=== PATIENT | female | born 1960 | race Caucasian/White ===

== ENCOUNTER 2017-04-18 23:44 | Emergency (ER) | payer OTHER ==
[~2017-04-18 23:44] MED LIST: ALLOPURINOL100 MG PO; AMLODIPINE BES2.5 MG PO; ASPIRIN ADULT L81 MG PO; LANTUS SOL100 UNITS/; LASIX20 MG PO; LEVOTHYROXINE25 MCG PO; LOPRESSOR25 MG PO; PREDNISONE20 MG PO; PROTONIX40 MG PO; SIMVASTATIN10 MG; VALTREX1 GM PO; ZOFRAN ODT4 MG PO
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
--- NOTE | 2017-04-19 01:29 | ED ORDER SUMMARY ---
..... Patient: DOUGIE LEE OrderSheet [facility] VisitID: [id number] [place] [address] 56y, F Registration Date/Time: 04/18/2017 ORDER SHEET Weight: 62.1 kg (stated) Allergies: Metformin, Sulfa Antibiotics GENERAL ORDERS: CT Head wo Cont Urgent (00:01 04/19/2017 Js SERRA) (Ack 0:04 AMcQuoid ER Tech1) (0:38 GUnger) CT Cervical Spine wo Cont Urgent (00:02 04/19/2017 Js SERRA) (Ack 0:04 AMcQuoid ER Tech1) (0:38 GUnger) MEDICATION ORDERS: Tdap IM 0.5 mL (NOW) (01:24 04/19/2017 Js SERRA) (1:37 LWhalblayne R.N.) IV FLUIDS: ORDER SHEET NOTES: [Electronically signed by Colin Henriquez R.N. (01:39 04/19/2017)] [Electronically signed by David Estrada MD (02:15 04/19/2017)] [Electronically locked/signed by Colin Henriquez R.N. (:39 04/19/2017)]
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
--- NOTE | 2017-04-19 01:29 | ED ORDER SUMMARY ---
..... Patient: DOUGIE LEE OrderSheet [facility] VisitID: [id number] [place] [address] 56y, F Registration Date/Time: 04/18/2017 ORDER SHEET Weight: 62.1 kg (stated) Allergies: Metformin, Sulfa Antibiotics GENERAL ORDERS: CT Head wo Cont Urgent (00:01 04/19/2017 Js SERRA) (Ack 0:04 AMcQuoid ER Tech1) (0:38 GUnger) CT Cervical Spine wo Cont Urgent (00:02 04/19/2017 Js SERRA) (Ack 0:04 AMcQuoid ER Tech1) (0:38 GUnger) MEDICATION ORDERS: Tdap IM 0.5 mL (NOW) (01:24 04/19/2017 Js SERRA) (1:37 LWhalblayne R.N.) IV FLUIDS: ORDER SHEET NOTES: [Electronically signed by Colin Henriquez R.N. (01:39 04/19/2017)] [Electronically signed by David Estrada MD (02:15 04/19/2017)] [Electronically locked/signed by Colin Henriquez R.N. (:39 04/19/2017)]
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
--- NOTE | 2017-04-19 02:15 | ED DISCHARGE INSTRUCTIONS ---
Patient: DOUGIE LEE General Instructions [facility] VisitID: [id number] [address], [place] [address] 56y, F Registration Date/Time: 04/18/2017 Concussion. No loss of consciousness. Skull fracture with no loss of consciousness. Concussion. (R occipital - non displaced). Single hematoma to the scalp. INSTRUCTIONS Apply ice for 20 minutes four times a day until better. Don't apply ice directly to skin and don't use while asleep. No driving or operating machinery while taking medication. Warnings: INFECTION: Watch for signs of infection (increasing heat and redness, pus-like drainage, swelling, or increased pain). Return or see your doctor if these signs occur. TETANUS: You were given a tetanus shot during your visit. Make a note for future reference. Further evaluation is necessary in order to conduct further tests and assess the possibility of serious illness. It is very important to follow up with a physician. GENERAL WARNINGS: Return or contact your physician immediately if your condition worsens or changes unexpectedly, if not improving as expected, or if other problems arise. Your Current Medications: CONTINUE TAKING THE FOLLOWING MEDICATIONS: Allopurinol Oral. AmLODIPine Besylate Oral. Aspirin Oral : Tablet 81 mg, 1 tablet. Lasix Oral. Levothyroxine Sodium Oral. Metoprolol Tartrate Oral : 75 mg daily. Simvastatin Oral : 10 mg daily. Vitamin D Oral. Prescription Medications: Hydrocodone/APAP 5mg/325mg: take 1 to 2 orally every 6 hours as needed for pain. Dispense fifteen (15). No refills. Understanding of the discharge instructions verbalized by patient. Follow-up with: Toño Bryson MD, ENT, , [address], , [place], [id number] Follow up tomorrow. Call for the next available appointment. Follow-up with: [facility], , , [address], [place], [address] Follow up in four days. Call for the next available appointment. ADDITIONAL INFORMATION Head Injury, No Wake-Up (Adult) You have had a head injury. It does not appear serious at this time. Symptoms of a more serious problem (concussion, bruising, or bleeding in the brain) may appear later. Therefore, watch for the WARNING SIGNS listed below. Home Care: Your healthcare provider will tell you whether its okay to drive. If so, you can drive yourself home. For the next day or so, be careful when driving or using heavy machinery until you are sure you have no delayed symptoms. During the next 24 hours someone must stay with you to check for the signs below. It is not necessary to stay awake or be awakened during the night. If you have swelling of the face or scalp, apply an ice pack (ice cubes in a plastic bag, wrapped in a towel) for 20 minutes. Do this every 1-2 hours until the swelling starts to go down. Do not use aspirin or ibuprofen (Motrin, Advil) after a head injury.You may use acetaminophen (Tylenol)to control pain, unless another pain medicine was prescribed. [NOTE: If you have chronic liver or kidney disease or ever had a stomach ulcer or GI bleeding, talk with your doctor before using these medicines.] For the next 24 hours: Do not take alcohol, sedatives or medicines that make you sleepy. Avoid strenuous activities. No lifting or straining. If you have had any symptoms of a concussion today (nausea, vomiting, dizziness, confusion, headache, memory loss or if you were knocked out), do not return to sports or any activity that could result in another head injury until all symptoms are gone and you have been cleared by your doctor. A second head injury before fully recovering from the first one can lead to serious brain injury. Follow Up with your doctor if symptoms are not improving after 24 hours, or as directed. [NOTE: A radiologist will review any X-rays or CT scans that were taken. We will notify you of any new findings that may affect your care.] Get Prompt Medical Attention if any of the followingWARNING SIGNS occur: Repeated vomiting Severe or worsening headache or dizziness Unusual drowsiness, or unable to awaken as usual Confusion or change in behavior or speech, memory loss, blurred vision Convulsion (seizure) Increasing scalp or face swelling Redness, warmth or pus from the swollen area Fluid drainage or bleeding from the nose or ears Hematoma A hematoma is caused by an injury with damage to small blood vessels. This causes blood to leak into the tissues. Blood forms a pocket under the skin that swells and looks like a purplish patch. Gradually the blood in the hematoma is absorbed back into the body. The swelling and pain of the hematoma will go away. This takes from one to four weeks, depending on the size of the hematoma. The skin over the hematoma may turn bluish then brown and yellow as the blood is dissolved and absorbed. Home Care: Limit motion of the joints near the hematoma. If the hematoma is large and painful, you should avoid sports and other vigorous physical activity until the swelling and pain goes away. Apply an ice pack (ice cubes in a plastic bag, wrapped in a towel) over the injured area for 20 minutes every 1-2 hours the first day. You should continue with ice packs 3-4 times a day for the next two days. Continue the use of ice packs for relief of pain and swelling as needed. You may use acetaminophen (Tylenol) or ibuprofen (Motrin, Advil) to control pain, unless another pain medicine was prescribed. [ NOTE : If you have chronic liver or kidney disease or ever had a stomach ulcer or GI bleeding, talk with your doctor before using these medicines.] Follow Up with your doctor or as advised by our staff. [ NOTE: A radiologist will review any X-rays that were taken. We will notify you of any new findings that may affect your care.] Get Prompt Medical Attention if any of the following occur: Redness around the hematoma Increase in pain or warmth in the hematoma Increase in size of the hematoma Fever of 100.4F (38C) or higher, or as directed by your healthcare provider If the hematoma is on the arm or leg, watch for: Increased swelling or pain in the extremity Numbness or tingling or blue color of the hand or foot Diphtheria Toxoid Adsorbed, Pertussis Vaccine, Acellular (Adsorbed), Tetanus Toxoid, Adsorbed Suspension for injection What is this medicine? DIPHTHERIA and TETANUS TOXOIDS; PERTUSSIS VACCINE (dif THEER ee uh and TET n us TOK soids; per TUS iss vak SEEN) is used to prevent diphtheria, tetanus, and pertussis infections. How should I use this medicine? This vaccine is for injection into a muscle. It is given by a health direct care professional. A copy of Vaccine Information Statements will be given before each vaccination. Read this sheet carefully each time. The sheet may change frequently. Talk to your globe mounter regarding the use of this vaccine in children. While the DTP vaccine may be given to children ages 6 weeks to 7 years and the Tdap vaccine may be given to children at least 10 years old, precautions do apply. What side effects may I notice from receiving this medicine? Side effects that you should report to your doctor or health direct care professional as soon as possible: allergic reactions like skin rash, itching or hives, swelling of the face, lips, or tongue breathing problems fever of 103 degrees F or more flu-like symptoms inconsolable crying infection pain, tingling, numbness in the hands or feet seizures swelling of arm or leg that was injected unusually weak or tired Side effects that usually do not require immediate medical attention (report these side effects to your doctor or health direct care professional if they continue or are bothersome): fussy, irritable loss of appetite fever of 102 degrees F or less pain, tenderness, redness, swelling, or a 'knot' at site where injected vomiting What may interact with this medicine? immune globulin medicines that suppress your immune function like adalimumab, anakinra, infliximab medicines to treat cancer medicines that treat or prevent blood clots like warfarin, enoxaparin, and dalteparin steroid medicines like prednisone or cortisone What if I miss a dose? It is important not to miss your dose. Call your doctor or health direct care professional if you are unable to keep an appointment. Where should I keep my medicine? This drug is given in a hospital or clinic and will not be stored at home. What should I tell my health care provider before I take this medicine? They need to know if you have any of these conditions: blood disorders like hemophilia fever or infection immune system problems neurologic disease seizures an unusual or allergic reaction to vaccines, thimerosal, latex, other medicines, foods, dyes, or preservatives or trying to get breast-feeding What should I watch for while using this medicine? See your health care provider for all shots of this vaccine as directed. To have protection from infection, you must have 3 shots of this vaccine plus boosters as needed. Tell your doctor right away if you have any serious or unusual side effects after getting this vaccine. Hydrocodone Bitartrate, Acetaminophen Oral tablet What is this medicine? ACETAMINOPHEN; HYDROCODONE (a set a TERRY lon fen; peggy droe KOE done) is a pain reliever. It is used to treat mild to moderate pain. How should I use this medicine? Take this medicine by mouth. Swallow it with a full glass of water. Follow the directions on the prescription label. If the medicine upsets your stomach, take the medicine with food or milk. Do not take more than you are told to take. Talk to your globe mounter regarding the use of this medicine in children. This medicine is not approved for use in children. What side effects may I notice from receiving this medicine? Side effects that you should report to your doctor or health direct care professional as soon as possible: allergic reactions like skin rash, itching or hives, swelling of the face, lips, or tongue breathing problems confusion feeling faint or lightheaded, falls stomach pain yellowing of the eyes or skin Side effects that usually do not require medical attention (report to your doctor or health direct care professional if they continue or are bothersome): nausea, vomiting stomach upset What may interact with this medicine? alcohol antihistamines isoniazid medicines for depression, anxiety, or psychotic disturbances medicines for sleep muscle relaxants naltrexone narcotic medicines (opiates) for pain phenobarbital ritonavir tramadol What if I miss a dose? If you miss a dose, take it as soon as you can. If it is almost time for your next dose, take only that dose. Do not take double or extra doses. Where should I keep my medicine? Keep out of the reach of children. This medicine can be abused. Keep your medicine in a safe place to protect it from theft. Do not share this medicine with anyone. Selling or giving away this medicine is dangerous and against the law. Store at room temperature between 15 and 30 degrees C (59 and 86 degrees F). Protect from light. Keep container tightly closed. Throw away any unused medicine after the expiration date. Discard unused medicine and used packaging carefully. Pets and children can be harmed if they find used or lost packages. What should I tell my health care provider before I take this medicine? They need to know if you have any of these conditions: brain tumor Crohn's disease, inflammatory bowel disease, or ulcerative colitis drink more than 3 alcohol-containing drinks per day drug abuse or addiction head injury heart or circulation problems kidney disease or problems going to the bathroom liver disease lung disease, asthma, or breathing problems an unusual or allergic reaction to acetaminophen, hydrocodone, other opioid analgesics, other medicines, foods, dyes, or preservatives or trying to get breast-feeding What should I watch for while using this medicine? Tell your doctor or health direct care professional if your pain does not go away, if it gets worse, or if you have new or a different type of pain. You may develop tolerance to the medicine. Tolerance means that you will need a higher dose of the medicine for pain relief. Tolerance is normal and is expected if you take the medicine for a long time. Do not suddenly stop taking your medicine because you may develop a severe reaction. Your body becomes used to the medicine. This does NOT mean you are addicted. Addiction is a behavior related to getting and using a drug for a non-medical reason. If you have pain, you have a medical reason to take pain medicine. Your doctor will tell you how much medicine to take. If your doctor wants you to stop the medicine, the dose will be slowly lowered over time to avoid any side effects. You may get drowsy or dizzy when you first start taking the medicine or change doses. Do not drive, use machinery, or do anything that may be dangerous until you know how the medicine affects you. Stand or sit up slowly. There are different types of narcotic medicines (opiates) for pain. If you take more than one type at the same time, you may have more side effects. Give your health care provider a list of all medicines you use. Your doctor will tell you how much medicine to take. Do not take more medicine than directed. Call emergency for help if you have problems breathing. The medicine will cause constipation. Try to have a bowel movement at least every 2 to 3 days. If you do not have a bowel movement for 3 days, call your doctor or health direct care professional. Too much acetaminophen can be very dangerous. Do not take Tylenol (acetaminophen) or medicines that contain acetaminophen with this medicine. Many non-prescription medicines contain acetaminophen. Always read the labels carefully. You have been given the following additional information: HEAD INJURY, No Wake-Up (Adult) Hematoma Diphtheria Toxoid Adsorbed, Pertussis Vaccine, Acellular (Adsorbed), Tetanus Toxoid, Adsorbed Suspension for injection Hydrocodone Bitartrate, Acetaminophen Oral tablet No driving or operating machinery while taking medication. (Electronically signed by David Estrada MD 04/19/2017 2:15)
--- NOTE | 2017-04-19 02:15 | ED DISCHARGE INSTRUCTIONS ---
Patient: DOUGIE LEE General Instructions [facility] VisitID: [id number] [address], [place] [address] 56y, F Registration Date/Time: 04/18/2017 Concussion. No loss of consciousness. Skull fracture with no loss of consciousness. Concussion. (R occipital - non displaced). Single hematoma to the scalp. INSTRUCTIONS Apply ice for 20 minutes four times a day until better. Don't apply ice directly to skin and don't use while asleep. No driving or operating machinery while taking medication. Warnings: INFECTION: Watch for signs of infection (increasing heat and redness, pus-like drainage, swelling, or increased pain). Return or see your doctor if these signs occur. TETANUS: You were given a tetanus shot during your visit. Make a note for future reference. Further evaluation is necessary in order to conduct further tests and assess the possibility of serious illness. It is very important to follow up with a physician. GENERAL WARNINGS: Return or contact your physician immediately if your condition worsens or changes unexpectedly, if not improving as expected, or if other problems arise. Your Current Medications: CONTINUE TAKING THE FOLLOWING MEDICATIONS: Allopurinol Oral. AmLODIPine Besylate Oral. Aspirin Oral : Tablet 81 mg, 1 tablet. Lasix Oral. Levothyroxine Sodium Oral. Metoprolol Tartrate Oral : 75 mg daily. Simvastatin Oral : 10 mg daily. Vitamin D Oral. Prescription Medications: Hydrocodone/APAP 5mg/325mg: take 1 to 2 orally every 6 hours as needed for pain. Dispense fifteen (15). No refills. Understanding of the discharge instructions verbalized by patient. Follow-up with: Toño Bryson MD, ENT, , [address], , [place], [id number] Follow up tomorrow. Call for the next available appointment. Follow-up with: [facility], , , [address], [place], [id number] Follow up in four days. Call for the next available appointment. ADDITIONAL INFORMATION Head Injury, No Wake-Up (Adult) You have had a head injury. It does not appear serious at this time. Symptoms of a more serious problem (concussion, bruising, or bleeding in the brain) may appear later. Therefore, watch for the WARNING SIGNS listed below. Home Care: Your healthcare provider will tell you whether its okay to drive. If so, you can drive yourself home. For the next day or so, be careful when driving or using heavy machinery until you are sure you have no delayed symptoms. During the next 24 hours someone must stay with you to check for the signs below. It is not necessary to stay awake or be awakened during the night. If you have swelling of the face or scalp, apply an ice pack (ice cubes in a plastic bag, wrapped in a towel) for 20 minutes. Do this every 1-2 hours until the swelling starts to go down. Do not use aspirin or ibuprofen (Motrin, Advil) after a head injury.You may use acetaminophen (Tylenol)to control pain, unless another pain medicine was prescribed. [NOTE: If you have chronic liver or kidney disease or ever had a stomach ulcer or GI bleeding, talk with your doctor before using these medicines.] For the next 24 hours: Do not take alcohol, sedatives or medicines that make you sleepy. Avoid strenuous activities. No lifting or straining. If you have had any symptoms of a concussion today (nausea, vomiting, dizziness, confusion, headache, memory loss or if you were knocked out), do not return to sports or any activity that could result in another head injury until all symptoms are gone and you have been cleared by your doctor. A second head injury before fully recovering from the first one can lead to serious brain injury. Follow Up with your doctor if symptoms are not improving after 24 hours, or as directed. [NOTE: A radiologist will review any X-rays or CT scans that were taken. We will notify you of any new findings that may affect your care.] Get Prompt Medical Attention if any of the followingWARNING SIGNS occur: Repeated vomiting Severe or worsening headache or dizziness Unusual drowsiness, or unable to awaken as usual Confusion or change in behavior or speech, memory loss, blurred vision Convulsion (seizure) Increasing scalp or face swelling Redness, warmth or pus from the swollen area Fluid drainage or bleeding from the nose or ears Hematoma A hematoma is caused by an injury with damage to small blood vessels. This causes blood to leak into the tissues. Blood forms a pocket under the skin that swells and looks like a purplish patch. Gradually the blood in the hematoma is absorbed back into the body. The swelling and pain of the hematoma will go away. This takes from one to four weeks, depending on the size of the hematoma. The skin over the hematoma may turn bluish then brown and yellow as the blood is dissolved and absorbed. Home Care: Limit motion of the joints near the hematoma. If the hematoma is large and painful, you should avoid sports and other vigorous physical activity until the swelling and pain goes away. Apply an ice pack (ice cubes in a plastic bag, wrapped in a towel) over the injured area for 20 minutes every 1-2 hours the first day. You should continue with ice packs 3-4 times a day for the next two days. Continue the use of ice packs for relief of pain and swelling as needed. You may use acetaminophen (Tylenol) or ibuprofen (Motrin, Advil) to control pain, unless another pain medicine was prescribed. [ NOTE : If you have chronic liver or kidney disease or ever had a stomach ulcer or GI bleeding, talk with your doctor before using these medicines.] Follow Up with your doctor or as advised by our staff. [ NOTE: A radiologist will review any X-rays that were taken. We will notify you of any new findings that may affect your care.] Get Prompt Medical Attention if any of the following occur: Redness around the hematoma Increase in pain or warmth in the hematoma Increase in size of the hematoma Fever of 100.4F (38C) or higher, or as directed by your healthcare provider If the hematoma is on the arm or leg, watch for: Increased swelling or pain in the extremity Numbness or tingling or blue color of the hand or foot Diphtheria Toxoid Adsorbed, Pertussis Vaccine, Acellular (Adsorbed), Tetanus Toxoid, Adsorbed Suspension for injection What is this medicine? DIPHTHERIA and TETANUS TOXOIDS; PERTUSSIS VACCINE (dif THEER ee uh and TET n us TOK soids; per TUS iss vak SEEN) is used to prevent diphtheria, tetanus, and pertussis infections. How should I use this medicine? This vaccine is for injection into a muscle. It is given by a health care asst. A copy of Vaccine Information Statements will be given before each vaccination. Read this sheet carefully each time. The sheet may change frequently. Talk to your operator/assistant foreman regarding the use of this vaccine in children. While the DTP vaccine may be given to children ages 6 weeks to 7 years and the Tdap vaccine may be given to children at least 10 years old, precautions do apply. What side effects may I notice from receiving this medicine? Side effects that you should report to your doctor or health care asst as soon as possible: allergic reactions like skin rash, itching or hives, swelling of the face, lips, or tongue breathing problems fever of 103 degrees F or more flu-like symptoms inconsolable crying infection pain, tingling, numbness in the hands or feet seizures swelling of arm or leg that was injected unusually weak or tired Side effects that usually do not require immediate medical attention (report these side effects to your doctor or health care asst if they continue or are bothersome): fussy, irritable loss of appetite fever of 102 degrees F or less pain, tenderness, redness, swelling, or a 'knot' at site where injected vomiting What may interact with this medicine? immune globulin medicines that suppress your immune function like adalimumab, anakinra, infliximab medicines to treat cancer medicines that treat or prevent blood clots like warfarin, enoxaparin, and dalteparin steroid medicines like prednisone or cortisone What if I miss a dose? It is important not to miss your dose. Call your doctor or health care asst if you are unable to keep an appointment. Where should I keep my medicine? This drug is given in a hospital or clinic and will not be stored at home. What should I tell my health care provider before I take this medicine? They need to know if you have any of these conditions: blood disorders like hemophilia fever or infection immune system problems neurologic disease seizures an unusual or allergic reaction to vaccines, thimerosal, latex, other medicines, foods, dyes, or preservatives or trying to get breast-feeding What should I watch for while using this medicine? See your health care provider for all shots of this vaccine as directed. To have protection from infection, you must have 3 shots of this vaccine plus boosters as needed. Tell your doctor right away if you have any serious or unusual side effects after getting this vaccine. Hydrocodone Bitartrate, Acetaminophen Oral tablet What is this medicine? ACETAMINOPHEN; HYDROCODONE (a set a TERRY lon fen; peggy droe KOE done) is a pain reliever. It is used to treat mild to moderate pain. How should I use this medicine? Take this medicine by mouth. Swallow it with a full glass of water. Follow the directions on the prescription label. If the medicine upsets your stomach, take the medicine with food or milk. Do not take more than you are told to take. Talk to your operator/assistant foreman regarding the use of this medicine in children. This medicine is not approved for use in children. What side effects may I notice from receiving this medicine? Side effects that you should report to your doctor or health care asst as soon as possible: allergic reactions like skin rash, itching or hives, swelling of the face, lips, or tongue breathing problems confusion feeling faint or lightheaded, falls stomach pain yellowing of the eyes or skin Side effects that usually do not require medical attention (report to your doctor or health care asst if they continue or are bothersome): nausea, vomiting stomach upset What may interact with this medicine? alcohol antihistamines isoniazid medicines for depression, anxiety, or psychotic disturbances medicines for sleep muscle relaxants naltrexone narcotic medicines (opiates) for pain phenobarbital ritonavir tramadol What if I miss a dose? If you miss a dose, take it as soon as you can. If it is almost time for your next dose, take only that dose. Do not take double or extra doses. Where should I keep my medicine? Keep out of the reach of children. This medicine can be abused. Keep your medicine in a safe place to protect it from theft. Do not share this medicine with anyone. Selling or giving away this medicine is dangerous and against the law. Store at room temperature between 15 and 30 degrees C (59 and 86 degrees F). Protect from light. Keep container tightly closed. Throw away any unused medicine after the expiration date. Discard unused medicine and used packaging carefully. Pets and children can be harmed if they find used or lost packages. What should I tell my health care provider before I take this medicine? They need to know if you have any of these conditions: brain tumor Crohn's disease, inflammatory bowel disease, or ulcerative colitis drink more than 3 alcohol-containing drinks per day drug abuse or addiction head injury heart or circulation problems kidney disease or problems going to the bathroom liver disease lung disease, asthma, or breathing problems an unusual or allergic reaction to acetaminophen, hydrocodone, other opioid analgesics, other medicines, foods, dyes, or preservatives or trying to get breast-feeding What should I watch for while using this medicine? Tell your doctor or health care asst if your pain does not go away, if it gets worse, or if you have new or a different type of pain. You may develop tolerance to the medicine. Tolerance means that you will need a higher dose of the medicine for pain relief. Tolerance is normal and is expected if you take the medicine for a long time. Do not suddenly stop taking your medicine because you may develop a severe reaction. Your body becomes used to the medicine. This does NOT mean you are addicted. Addiction is a behavior related to getting and using a drug for a non-medical reason. If you have pain, you have a medical reason to take pain medicine. Your doctor will tell you how much medicine to take. If your doctor wants you to stop the medicine, the dose will be slowly lowered over time to avoid any side effects. You may get drowsy or dizzy when you first start taking the medicine or change doses. Do not drive, use machinery, or do anything that may be dangerous until you know how the medicine affects you. Stand or sit up slowly. There are different types of narcotic medicines (opiates) for pain. If you take more than one type at the same time, you may have more side effects. Give your health care provider a list of all medicines you use. Your doctor will tell you how much medicine to take. Do not take more medicine than directed. Call emergency for help if you have problems breathing. The medicine will cause constipation. Try to have a bowel movement at least every 2 to 3 days. If you do not have a bowel movement for 3 days, call your doctor or health care asst. Too much acetaminophen can be very dangerous. Do not take Tylenol (acetaminophen) or medicines that contain acetaminophen with this medicine. Many non-prescription medicines contain acetaminophen. Always read the labels carefully. You have been given the following additional information: HEAD INJURY, No Wake-Up (Adult) Hematoma Diphtheria Toxoid Adsorbed, Pertussis Vaccine, Acellular (Adsorbed), Tetanus Toxoid, Adsorbed Suspension for injection Hydrocodone Bitartrate, Acetaminophen Oral tablet No driving or operating machinery while taking medication. (Electronically signed by David Estrada MD 04/19/2017 2:15)
--- NOTE | 2017-04-19 02:15 | ED MAR SUMMARY ---
..... Medication Administration Record [facility] [address] [place] [address] Patient: DOUGIE LEE Visit ID: [id number] 56y, F Weight: 62.1 kg Height/Length: 59 in BMI: 27.7 ALLERGIES: Metformin, Sulfa Antibiotics Given 01:27 04/19/2017 Colin Henriquez RMelonie Medication Administered: TDAP [IM], Dose: 0.5 mL IM. Medication Ordered: Tdap IM 0.5 mL (NOW).
--- NOTE | 2017-04-19 02:15 | ED MAR SUMMARY ---
..... Medication Administration Record [facility] [address] [place] [address] Patient: DOUGIE LEE Visit ID: [id number] 56y, F Weight: 62.1 kg Height/Length: 59 in BMI: 27.7 ALLERGIES: Metformin, Sulfa Antibiotics Given 01:27 04/19/2017 Colin Henriquez RMelonie Medication Administered: TDAP [IM], Dose: 0.5 mL IM. Medication Ordered: Tdap IM 0.5 mL (NOW).
--- NOTE | 2017-04-19 02:15 | ED MED RECONCILIATION SUMMARY ---
Patient: DOUGIE LEE Medication Reconciliation Report [facility] VisitID: [id number] [place] [address] 56y, F Registration Date/Time: 04/18/2017 Weight: 62.1 kg Height/Length: 59 in. BMI: 27.7 ALLERGIES: Metformin, Sulfa Antibiotics The patient's Home Medications are listed below: CONTINUE TAKING THE FOLLOWING MEDICATIONS: Allopurinol Oral AmLODIPine Besylate Oral Aspirin Oral (81 mg) 1 tablet Lasix Oral Levothyroxine Sodium Oral Metoprolol Tartrate Oral 75 mg, daily Simvastatin Oral 10 mg, daily Vitamin D Oral The source(s) of the original Home Medication information: Not obtained. The following Medications were given to the patient in the Emergency Department: TDAP [IM] IM 0.5 mL, administered: 04/19/2017 1:27:00 AM The following Medications were prescribed to the patient: Hydrocodone/APAP 5mg/325mg: take 1 to 2 orally every 6 hours as needed for pain. Dispense fifteen (15). No refills. -- David Estrada MD
--- NOTE | 2017-04-19 02:15 | ED MED RECONCILIATION SUMMARY ---
Patient: DOUGIE LEE Medication Reconciliation Report [facility] VisitID: [id number] [place] [address] 56y, F Registration Date/Time: 04/18/2017 Weight: 62.1 kg Height/Length: 59 in. BMI: 27.7 ALLERGIES: Metformin, Sulfa Antibiotics The patient's Home Medications are listed below: CONTINUE TAKING THE FOLLOWING MEDICATIONS: Allopurinol Oral AmLODIPine Besylate Oral Aspirin Oral (81 mg) 1 tablet Lasix Oral Levothyroxine Sodium Oral Metoprolol Tartrate Oral 75 mg, daily Simvastatin Oral 10 mg, daily Vitamin D Oral The source(s) of the original Home Medication information: Not obtained. The following Medications were given to the patient in the Emergency Department: TDAP [IM] IM 0.5 mL, administered: 04/19/2017 1:27:00 AM The following Medications were prescribed to the patient: Hydrocodone/APAP 5mg/325mg: take 1 to 2 orally every 6 hours as needed for pain. Dispense fifteen (15). No refills. -- David Estrada MD
--- NOTE | 2017-04-19 05:41 | DIAGNOSTIC IMAGING REPORT ---
PROCEDURE: CT HEAD WITHOUT CONTRAST INDICATION: TRAUMA/INJURY TECHNIQUE: Noncontrast axial images with sagittal and coronal reformations. COMPARISON: Head CT 02/07/2016. FINDINGS: Small right occipital scalp contusion with underlying hairline fracture. There is no intracranial hemorrhage. Sulci and ventricular system are normal. Mild white matter chronic ischemic changes with small lacunar infarcts in the basal ganglia bilaterally, new since the prior study. Visualized mastoids and sinuses are clear. IMPRESSION: 1. Right occipital hairline fracture but no acute intracranial abnormality 2. Mild white matter chronic ischemic changes and small bilateral old lacunar infarcts 3. Preliminary results submitted by Dr. Sebastian, [facility] radiology.
--- NOTE | 2017-04-19 05:46 | DIAGNOSTIC IMAGING REPORT ---
PROCEDURE: CT CERVICAL SPINE W/O CONTRAST CLINICAL INDICATION: TRAUMA/INJURY TECHNIQUE: Noncontrast axial images with sagittal and coronal reformations. COMPARISON: None. FINDINGS: Normal alignment without fracture. Straightening of the cervical spine. Mild degenerative changes. No foraminal or spinal stenosis. There is a 1.5 x 2 cm soft tissue mass at the base of the tongue on the right side. Mildly enlarged cervical and supraclavicular lymph nodes. IMPRESSION: 1. No evidence of post-traumatic changes of cervical spine 2. Suspected mass at the base of the tongue on the right side with cervical and supraclavicular adenopathy suspicious for neoplasm. 3. Preliminary results submitted by Dr. Sebastian, [facility] radiology. All CT scans at this facility use dose modulation, iterative reconstruction, and/or weight-based dosing when appropriate to reduce radiation dose to as low as reasonably achievable.
--- NOTE | 2017-04-19 05:46 | DIAGNOSTIC IMAGING REPORT ---
PROCEDURE: CT CERVICAL SPINE W/O CONTRAST CLINICAL INDICATION: TRAUMA/INJURY TECHNIQUE: Noncontrast axial images with sagittal and coronal reformations. COMPARISON: None. FINDINGS: Normal alignment without fracture. Straightening of the cervical spine. Mild degenerative changes. No foraminal or spinal stenosis. There is a 1.5 x 2 cm soft tissue mass at the base of the tongue on the right side. Mildly enlarged cervical and supraclavicular lymph nodes. IMPRESSION: 1. No evidence of post-traumatic changes of cervical spine 2. Suspected mass at the base of the tongue on the right side with cervical and supraclavicular adenopathy suspicious for neoplasm. 3. Preliminary results submitted by Dr. Sebastian, [facility] radiology. All CT scans at this facility use dose modulation, iterative reconstruction, and/or weight-based dosing when appropriate to reduce radiation dose to as low as reasonably achievable.
== END 2017-04-19 01:35 | disposition home or self-care (01) ==
LOC: ED SRH 23:44
DX: S02.119A Unspecified fracture of occiput, initial encounter for closed fracture (principal); S06.0X0A Concussion without loss of consciousness, initial encounter; S00.03XA Contusion of scalp, initial encounter; W19.XXXA Unspecified fall, initial encounter; Y93.9 Activity, unspecified; Y99.9 Unspecified external cause status; Y92.009 Unspecified place in unspecified non-institutional (private) residence as the place of occurrence of the external cause; K14.8 Other diseases of tongue; R59.1 Generalized enlarged lymph nodes; I10 Essential (primary) hypertension; Z23 Encounter for immunization; Z86.73 Personal history of transient ischemic attack (TIA), and cerebral infarction without residual deficits; Z79.899 Other long term (current) drug therapy